=== PATIENT | female | born 1970 | race Caucasian/White ===

== ENCOUNTER → 2016-10-29 | Outpatient (CLI) | payer OTHER ==
[~2016-10-29] MED LIST: AMLO5 PO; ATEN100T PO; COZA100T PO; GLUCOSE MONITOR; MELO-1 PO; METH5TAB PO; MULT1TAB84 PO; OXYC1TAB63 PO; VENL150T PO
[2016-10-29 09:26] LABS: AUTOMATED NEUTROPHIL # 3.2 TH/MM3 (1.8-7.7); BASOPHIL % 0.8 % (0.0-2.0); EOSINOPHIL # 0.3 TH/MM3 (0-0.4); EOSINOPHIL % 5.9 % (0.0-4.0); HEMATOCRIT 37.3 % (35.0-46.0); HEMO FLAGS DIFF FINAL; LYMPH % 25.6 % (9.0-44.0); LYMPHOCYTE # 1.4 TH/MM3 (1.0-4.8); MEAN CELL VOLUME 86.4 FL (80.0-100.0); MEAN CORPUSCULAR HEMOGLOBIN 29.2 PG (27.0-34.0); MEAN CORPUSCULAR HGB CONC 33.8 % (32.0-36.0); MONO % 9.4 % (0.0-8.0); NEUT % 58.3 % (16.0-70.0); PLATELET COUNT 181 TH/MM3 (150-450); RED BLOOD COUNT 4.32 MIL/MM3 (4.00-5.30); WHITE BLOOD COUNT 5.5 TH/MM3 (4.0-11.0)
[2016-10-29 09:40] LABS: ANION GAP 7 MEQ/L (5-15); AST (GOT) 12 U/L (15-37); BICARBONATE 31.1 MEQ/L (21.0-32.0); BLOOD UREA NITROGEN 17 MG/DL (7-18); CHLORIDE 101 MEQ/L (98-107); GLOMERULAR FILTRATION RATE 70 ML/MIN (>89); GLUCOSE,FASTING 95 MG/DL (74-99); POTASSIUM 3.6 MEQ/L (3.5-5.1); SODIUM (NA) 139 MEQ/L (136-145)
[2016-10-29 09:44] LABS: ALKALINE PHOSPHATASE 67 U/L (45-117); ALT (GPT) 21 U/L (10-53); HDL CHOLESTEROL 51.1 MG/DL (40.0-60.0); LDL CHOLESTEROL 103 MG/DL (0-99); TOTAL BILIRUBIN ADULT 0.3 MG/DL (0.2-1.0)
== END ==
LOC: CLAB 08:39
PROVIDERS: ATTEND Family Medicine
DX: E78.5 Hyperlipidemia, unspecified (principal); G60.0 Hereditary motor and sensory neuropathy
CPT/HCPCS: 36415; 80053; 80061; 85025

== ENCOUNTER → 2016-11-07 | Day surgery (SDC) | payer OTHER ==
[~2016-11-07] MED LIST changes: +INCOBOTULINUMTOXINA 100 UNITS VIAL IM ONE; +SODIUM CHLORIDE 0.9% 10 ML VIAL ONE
--- NOTE | 2016-11-11 07:23 | M6 ---
cc: GENEVIEVE LUBIN M.D. DATE: 11/07/2016 DATE OF : 1970 PROCEDURE Injection botulinum toxin type A (Xeomin), left trapezius and posterior cervical musculature. PROCEDURE NOTE History and physical was completed and signed. Consent was signed. Procedure site was marked. Medications were listed and reconciled. Pain score was recorded. Allergies were noted. Timeout was taken. Fluoroscopy time was recorded where applicable. A blood pressure cuff and pulse oximeter were applied. The patient was placed in a sitting position. The skin over the left trapezius and cervical area was prepped with alcohol. The areas of greatest spasticity were identified. A 27-gauge needle was used to inject a total of 200 units of botulinum toxin type A (Xeomin) at six different locations corresponding to the areas of greatest spasticity. Following this the patient was observed in the recovery area with stable vital signs prior to being discharged. W. MD JORJE Ribera/KRISTIE /11:13 AM /7:22 AM
== END | disposition home or self-care (01) ==
LOC: PHSDC 10:25
PROVIDERS: ATTEND Pain Medicine Interventional Pain Medicine
DX: S46.812A Strain of other muscles, fascia and tendons at shoulder and upper arm level, left arm, initial encounter (principal)
CPT/HCPCS: 64616; J0588

== ENCOUNTER → 2017-05-27 | Outpatient (CLI) | payer OTHER, MEDICARE ==
[~2017-05-27] MED LIST changes: -GLUCOSE MONITOR; -INCOBOTULINUMTOXINA 100 UNITS VIAL IM ONE; +METH10TA PO; -METH5TAB PO; +MULT-65 PO; +SENN8.6T36 PO; -SODIUM CHLORIDE 0.9% 10 ML VIAL ONE
[2017-05-27 15:47] LABS: BASOPHIL % 0.7 % (0.0-2.0); EOSINOPHIL # 0.2 TH/MM3 (0-0.4); EOSINOPHIL % 2.9 % (0.0-4.0); HEMATOCRIT 36.8 % (35.0-46.0); HEMO FLAGS DIFF FINAL; LYMPH % 26.1 % (9.0-44.0); LYMPHOCYTE # 1.7 TH/MM3 (1.0-4.8); MEAN CORPUSCULAR HEMOGLOBIN 28.7 PG (27.0-34.0); MEAN CORPUSCULAR HGB CONC 33.4 % (32.0-36.0); MONO % 8.4 % (0.0-8.0); NEUT % 61.9 % (16.0-70.0); PLATELET COUNT 218 TH/MM3 (150-450); RED BLOOD COUNT 4.28 MIL/MM3 (4.00-5.30); RED CELL DISTRIBUTION WIDTH 13.2 % (11.6-17.2); WHITE BLOOD COUNT 6.5 TH/MM3 (4.0-11.0)
[2017-05-27 16:02] LABS: ANION GAP 8 MEQ/L (5-15); AST (GOT) 19 U/L (15-37); BLOOD UREA NITROGEN 21 MG/DL (7-18); CHLORIDE 103 MEQ/L (98-107); GLOMERULAR FILTRATION RATE 66 ML/MIN (>89); GLUCOSE,FASTING 83 MG/DL (74-99); POTASSIUM 3.5 MEQ/L (3.5-5.1); SODIUM (NA) 139 MEQ/L (136-145)
[2017-05-27 16:05] LABS: ALKALINE PHOSPHATASE 73 U/L (45-117); ALT (GPT) 26 U/L (10-53); LDL CHOLESTEROL 112 MG/DL (0-99); TOTAL BILIRUBIN ADULT 0.4 MG/DL (0.2-1.0)
== END ==
LOC: PLAB 11:45
PROVIDERS: ATTEND Family Medicine
DX: G60.0 Hereditary motor and sensory neuropathy (principal)
CPT/HCPCS: 80053; 80061; 85025

== ENCOUNTER → 2017-05-27 | Outpatient (CLI) | payer OTHER, MEDICARE ==
[2017-05-27 11:28] LABS: BLOOD, URINE SMALL (NEG); GLUCOSE,URINE NEG (NEG); KETONE, URINE NEG (NEG); NITRITE,URINE NEG (NEG)
[2017-05-27 11:37] LABS: METHOD OF COLLECTION CLEAN CATCH; URINE COLOR YELLOW (YELLW/STRAW)
[2017-05-27 11:38] LABS: COMMENT (UR) CULT NOT INDICATED; COMMENT2 (UR) MUCOUS PRESENT; CULTURE IF INDICATED CULT NOT INDICATED; RBC, URINE 0-3 /hpf (0-3); SQUAMOUS EPITHELIAL CELL URINE 0-5 /hpf (0-5); WBC, URINE 0-2 /hpf (0-5)
== END ==
LOC: PHPRE 10:39
PROVIDERS: ATTEND Pain Medicine Interventional Pain Medicine
DX: Z01.812 Encounter for preprocedural laboratory examination (principal); G60.0 Hereditary motor and sensory neuropathy
CPT/HCPCS: 81001

== ENCOUNTER → 2017-06-02 | Day surgery (SDC) | payer OTHER, MEDICARE ==
[~2017-06-02] VITALS: Ht 160 cm; Wt 83.0 kg
[~2017-06-02] MED LIST changes: +FAMOTIDINE 20 MG/2 ML VIAL ONE; +LACTATED RINGER'S 1000 ML INJ 1,000 ML IV ONE; +LACTATED RINGER'S 1000 ML INJ 1,000 ML ONE; -MULT1TAB84 PO; +PROPOFOL 200 MG/20 ML AMP IV ONE; +SODIUM CHLORIDE 0.9% 20 ML VIAL ONE; +ceFAZolin 1,000 MG/NS 100 ML IV SCH
[2017-06-02] MEDS: BUPIVACAINE/EPINEPHRINE 0.5% PF 30 ML VIAL ONE (13:52)
--- NOTE | 2017-06-02 15:35 | MP ---
cc: GENEVIEVE LUBIN M.D. DATE OF SURGERY: 06/02/2017 DATE OF : 1970 PROCEDURE Implantation of Medtronic Octrodes for spinal cord stimulation x2. 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 POSTPROCEDURE DIAGNOSIS Ziwsapz-Rurhf-Cfkhq syndrome with intractable lower extremity pain. PROCEDURE NOTE An IV was started in the holding area. The patient was given IV antibiotics. She signed a consent form. The surgical site was marked. She was taken to the operating room and placed in the prone position. Pressure points were checked and padded. She was sedated and monitored by Anesthesia. Her back was prepped with ChloraPrep and draped with sterile drapes. Fluoroscopy was used to visualize the L1-2 interspace. The skin was infiltrated with 1% Xylocaine using a 27-gauge needle. Then a three-inch incision was made over the midline and a modified Tuohy needle from the Medtronic's kit was advanced on each side into the epidural space at T12-L1 slightly to the left of the midline. Then a Medtronic Octrode was advanced through each needle until the cephalad tip of the Octrodes for a T10 and the caudal tip of the electrodes were the bottom of T11. The patient was awakened and stimulation took place at multiple electrode combinations. The patient was receiving good stimulation in her left and right lower extremity and this was covering the areas of her pain. The patient was re-sedated and very carefully the needle and the stylet was removed at each lead and then each lead was anchored to the underlying interspinous ligament using a Silastic anchor circumferentially tied with two 2-0 Ethibond sutures on each lead. Fluoroscopy was used to confirm the leads had not moved during the anchoring process. Then the distal extension wires were connected to the stimulating leads by tightening an Evans screw and covering the connection with a Silastic cover secured at both ends with 2-0 Ethibond suture. Impedance was checked at the bedside and found to be appropriate in all the electrodes. Then the stimulating lead and distal extension wire were coiled in the subcutaneous pocket in the lumbar midline and then a tunneling device was used to tunnel the distal extension wires to exit on the patient's right flank. The incision was irrigated with Betadine. Closure took place with 3-0 Monocryl in the subcuticular tissue and 3-0 nylon on the skin. The incisions were covered with sterile adhesive dressings and the patient was taken to the recovery room with stable vital signs, neurologically intact. W. MD JORJE Ribera/KRISTIE /3:10 PM /3:23 PM
[2017-06-02 15:45] VITALS: BP 138/94; PULSE 60; RESP 16; TEMP 98; O2SAT 99
--- NOTE | 2017-06-03 07:23 | RADRPT ---
EXAM DATE/TIME: 06/02/2017 14:34 [facility] COMPARISON: No previous studies available for comparison. INDICATIONS : Post trial stimulator. Hemostats to the left of T-10. MEDICAL HISTORY : Hypertension. Chronic obstructive pulmonary disease. Gastroesophageal reflux disease. Neuropathy. Gccchww-Zadle-hxqqw disease. SURGICAL HISTORY : Tubal ligation. Breast augumentation. ENCOUNTER: Initial ACUITY: 1 day PAIN SCORE: Non-responsive. LOCATION: Thoracic spine. FINDINGS: Single AP view of the thoracic spine obtained during a procedure demonstrates 2 spinal stimulator karthikeyan ds overlying the thoracic spine in the midline. Images labeled "hemostats to the left of T10." There is a hemostat present. Assuming the labeling is correct, the spinal stimulator leads terminate at the superior aspect of the T10 level. CONCLUSION: Single spot fluoroscopic image, as above. Dion Clifford MD on June 03, 2017 at 7:21 Board Certified Radiologist. This report was verified electronically.
== END | disposition home or self-care (01) ==
LOC: PHSDC 10:49
PROVIDERS: ATTEND Pain Medicine Interventional Pain Medicine
DX: G57.73 Causalgia of bilateral lower limbs (principal); G60.0 Hereditary motor and sensory neuropathy; R53.83 Other fatigue; I10 Essential (primary) hypertension
CPT/HCPCS: 01936; 63650; 72020; C1778; J0690; J7120; 77003

== ENCOUNTER → 2017-06-12 | Day surgery (SDC) | payer OTHER, MEDICARE ==
[~2017-06-12] VITALS: Ht 160 cm; Wt 79.5 kg
[~2017-06-12] MED LIST changes: +BUPIVACAINE/EPINEPHRINE 0.5% 50 ML VIAL ONE; +CHLORHEXIDINE GLUCONATE 2 % 1 PACK (2 CLOTHS) TOPICAL PRN; -FAMOTIDINE 20 MG/2 ML VIAL ONE; +INSULIN HUMAN REGULAR 1,000 UNITS/10 ML VIAL SQ PRN; -LACTATED RINGER'S 1000 ML INJ 1,000 ML IV ONE; +LACTATED RINGER'S 1000 ML IV PRN; +METOPROLOL TARTRATE 25 MG TAB PO PRN; +MORPHINE SULFATE 4 MG/ML INJ ONE; +POVIDONE IODINE 5% (ANTISEPSIS KIT) 4 APPLICATIONS EACH NARE PRN; -PROPOFOL 200 MG/20 ML AMP IV ONE; +SODIUM CHLORID 0.9% 500 ML IV PRN; -SODIUM CHLORIDE 0.9% 20 ML VIAL ONE; +SODIUM CHLORIDE 0.9% INJ 100 ML ONE; +SODIUM CHLORIDE 0.9% INJ 50 ML ONE; +VANCOMYCIN 500 MG VIAL ONE; -ceFAZolin 1,000 MG/NS 100 ML IV SCH; +ceFAZolin INJ 1,000 MG VIAL ONE
[2017-06-12 07:55] VITALS: PULSE 70
[2017-06-12 08:50] VITALS: PULSE 74
[2017-06-12 12:38] VITALS: PULSE 76
--- NOTE | 2017-06-12 13:05 | MP ---
cc: Lou LUBIN DATE OF SURGERY 06/12/2017 DATE OF 1970 PROCEDURE Implantation of Medtronic's dual channel rechargeable pulse generator for spinal cord stimulation. PREPROCEDURE DIAGNOSIS Gdhhdjl-Vtbsf-Qclgk syndrome with intractable pain. POSTPROCEDURE DIAGNOSIS Lwlmnkq-Nqhzr-Ynuwc syndrome with intractable pain. PROCEDURE NOTE An IV was started in the holding area. The patient was given IV antibiotics, signed the surgical consent form and her surgical site was marked. The patient was taken to the operating room, a time out was taken. The distal extension wires on the patient's right flank were prepped with alcohol and cut with sterile scissors. Then the patient was placed in the right lateral decubitus position. All pressure points were checked and padded. She was anesthetized using an LMA. Her left abdomen and lumbar area was prepped with ChloraPrep and she was draped with sterile drapes. 0.5% Marcaine with epinephrine was used to infiltrate the lumbar incision, also a small incision in the left flank and in the left subcostal area. Then the lumbar incision was reopened. The stimulating electrodes were exteriorized and disconnected from the distal extension wires by loosening an Evans screw. Then a small incision was made in the left flank and another incision was made in the left subcostal area and a subcutaneous pocket was created at that location. Then a tunneling device was used to tunnel the stimulating leads from the lumbar area to the left subcostal subcutaneous pocket. The stimulating leads were connected to a Medtronic's dual channel rechargeable pulse generator by tightening Evans screws. Impedance was checked at the bedside and found to be appropriate in all the electrodes. Then each incision was irrigated with Betadine. The redundant lead was coiled behind the pulse generator. The pulse generator was placed in the subcutaneous pocket with the letter side facing the skin and anchored to the underlying fascia by using two 2-0 Ethibond sutures. Then all three incisions were closed using 3-0 Monocryl in the subcuticular tissue and 3-0 nylon on the skin. The incisions were covered with sterile adhesive dressings. The patient was taken to the Recovery Room with stable vital signs neurologically intact. W. MD JORJE Ribera/ROSAS /12:44 PM /12:49 PM
[2017-06-12 13:45] VITALS: BP 125/74; PULSE 69; RESP 16; TEMP 98.1; O2SAT 100
== END | disposition home or self-care (01) ==
LOC: PHSDC 09:12
PROVIDERS: ATTEND Pain Medicine Interventional Pain Medicine
DX: G57.73 Causalgia of bilateral lower limbs (principal); G60.0 Hereditary motor and sensory neuropathy; R73.03 Prediabetes; I10 Essential (primary) hypertension
CPT/HCPCS: 00400; 63685; C1767; J0690; J2270; J3010; J3370; J7120